=== PATIENT | female | born 1985 | race Caucasian/White ===

== ENCOUNTER 2019-09-18 20:27 | Emergency (ER) | payer MEDICAID ==
[~2019-09-18] VITALS: Ht 162.6 cm; Wt 63.6 kg
[2019-09-18] MEDS ORDERED: AMOX-422 PO (20:38)
[2019-09-18] MEDS ORDERED: amox tr/potassium clavulanate 875/125mg TAB PO ONE (20:40)
[2019-09-18 20:50] VITALS: BP 141/85
[2019-09-18] MEDS ORDERED: TETanus/Pertussis (Acell)/Diphther VAC/PF (Tdap-Adult) 0.5ml syringe IMVAC ONE (21:00)
== END 2019-09-18 20:51 | disposition home or self-care (01) ==
LOC: ER 20:28
DX: S61.234A Puncture wound without foreign body of right ring finger without damage to nail, initial encounter (principal); F32.9 Major depressive disorder, single episode, unspecified; Z90.49 Acquired absence of other specified parts of digestive tract; Z79.899 Other long term (current) drug therapy; W55.01XA Bitten by cat, initial encounter; Y93.89 Activity, other specified; Y92.89 Other specified places as the place of occurrence of the external cause; Y99.8 Other external cause status
CPT/HCPCS: 90471; 90715; 99283